=== PATIENT | female | born 1985 | race Two or more races ===

== ENCOUNTER 2016-06-15 23:59 | Emergency (ER) | payer OTHER ==
[2016-06-15 19:44] LABS: URINE SOURCE CLEAN CATCH
[2016-06-15 19:57] LABS: URINE APPEARANCE CLEAR; URINE BILIRUBIN NEG (NEG); URINE BLOOD 2+ (NEG); URINE COLOR YELLOW; URINE GLUCOSE NEG (NEG); URINE KETONE NEG (NEG); URINE LEUKOCYTE ESTERASE NEG (NEG); URINE NITRATE NEG (NEG); URINE PROTEIN NEG (NEG); URINE SPECIFIC GRAVITY 1.024 (1.003-1.035)
[2016-06-15 20:01] LABS: CULTURE INDICATED? YES; URBCS1 AUWI 0-2 /[HPF] (0-2); URINE BACTERIA AUWI 1+ (NEGATIVE); URINE SQUAMOUS EPITHELIAL CELL OCC /[HPF]
== END 2016-06-16 00:15 | disposition home or self-care (01) ==
LOC: CED 23:59
PROVIDERS: Emergency Medicine
DX: R51 Headache (principal); R10.2 Pelvic and perineal pain
CPT/HCPCS: 81003; 84703; 87086; 99283